=== PATIENT | female | born 1995 | race Caucasian/White ===

== ENCOUNTER 2020-06-20 19:09 | Emergency (ER) | payer SELFPAY ==
[2020-06-20 19:10] VITALS: BP 133/93; PULSE 91; RESP 15; TEMP 36.3; O2SAT 94; BMI 32.8
[2020-06-20 20:03] LABS: Mucous, Urine 0 SEEN /hpf (<or=2+)
[2020-06-20 20:05] LABS: Glucose, Dipstick Normal (Normal); Ketone-Dipstick 15 mg/dl (Negative); Leukocyte Esterase-Dipstick 100 /ul (Negative); Nitrite-Dipstick Positive (Negative); Occult Blood-Urine 25 /ul (Negative); Protein-Dipstick 30 mg/dl (Negative); Specific Gravity, Urine 1.025 (1.002-1.030); Urine Clarity Sl. Cloudy (Clear); Urine Urobilinogen 12 mg/dl (Normal)
[2020-06-20 20:06] LABS: Color, Urine SEE COMMENT BELOW (Yellow); Urine Bilirubin Dipstick 6 mg/dL (Negative)
[2020-06-20 20:09] LABS: Internal QC Validated? YES +Cl - CLEAR BKGD; Pregnancy, Urine Negative Negative
[2020-06-20 20:11] LABS: Bacteria RARE /hpf (None Seen); Red Blood Cells-Urine 0-5 SEEN /hpf (0-5); Squamous Epithelial Cells - UA 0-5 SEEN /hpf (5-10); White Blood Cells 10-25 SEEN /hpf (0-5)
[2020-06-20 20:12] LABS: Amorphous Sediment 1+ URATE
--- NOTE | 2020-06-20 20:16 | ED.DCSUM_ITS ---
- ER Visit Summary Date of Service: 06/20/20 Chief Complaint: UTI History of Present Illness: The patient is a 24 F who presents with burning with urination for 2 days. No other symptoms. Physical Examination: Exam unremarkable. Afebrile. Test Results: Urinalysis shows UTI. test negative. Emergency Department Course and Treatment: Patient treated with Macrobid. Diflucan for yeast infection as needed. Follow-up with primary care. Treatment Plan: As above Disposition: Discharge Impression: UTI, cystitis This note was generated with [employer] dictation software. It may contain incorrect words, spelling, and punctuation that were not noted in review of the chart prior to signing ED Disposition - Plan for ED Patient: Referrals: Care Physician,No Primary [Primary Care Provider] -
--- NOTE | 2020-06-20 20:17 | ED.DEP ---
ED Disposition - Plan for ED Patient: Instructions: ED CYSTITIS Female Adult Prescriptions: Fluconazole [Diflucan] 150 mg PO X1 #1 tab Prescription Printed Nitrofurantoin Macrocrystals [Macrobid] 100 mg PO Q12 #14 cap Prescription Printed Phenazopyridine HCl [Pyridium] 100 mg PO TID #6 tab Prescription Printed Referrals: Care Physician,No Primary [Primary Care Provider] -
[2020-06-20] MEDS: Nitrofurantoin Macrocrystals 100 MG Capsule PO (20:46)
== END 2020-06-20 21:01 | disposition home or self-care (01) ==
LOC: ED 19:59
PROVIDERS: Emergency Provider Emergency Medicine
DX: N30.90 Cystitis, unspecified without hematuria (principal)
CPT/HCPCS: 81001; 81025; 87077; 87086; 87088; 87186; 99283